=== PATIENT | male | born 1995 | race African-American/Black ===

== ENCOUNTER 2017-03-28 20:04 | Emergency (ER) | payer SELFPAY ==
[2017-03-28 20:08] VITALS: BP 120/69; PULSE 112; TEMP 97.7; BMI 19.8
[2017-03-28] MEDS ORDERED: ALBUTEROL SO4 0.083% IH SOL 2.5 MG/3 ML VIAL.NEB. NEB ONE ×2 (20:25→20:30)
--- NOTE | 2017-03-28 20:25 | PDOC ---
History of Present Illness - General Chief Complaint: Asthma Stated Complaint: ASTHMA Time Seen by Provider: 03/28/17 20:20 History Source: Patient Exam Limitations: No Limitations - History of Present Illness Initial Comments: 03/28/17 20:22 21 yr male with asthma no history of intubations or hospitalizations presents with nasal congestion, phlegm in throat and coughing . no fever no wheezing. Pt states at night he feels short of breath. Pt ran out inhalers and called out of work today asking for a note. Pt currently smokes daily. 03/28/17 20:26 Past History - Past Medical History Allergies/Adverse Reactions: Allergies Allergy/AdvReac Type Severity Reaction Status Date / Time No Known Allergies Allergy Verified 03/28/17 20:08 Home Medications: Ambulatory Orders Albuterol Sulfate Inhaler - [Ventolin HFA Inhaler -] 2 inh PO Q4H PRN #1 inh Fluticasone Prop 0.05% Nasal [Flonase -] 1 - 2 spray NS DAILY #1 spray.pump Montelukast Na [Singulair -] 10 mg PO HS #30 tablet 03/28/17 Asthma: Yes - Immunization History Immunization Up to Date: Yes - Psycho/Social/Smoking Cessation Hx Anxiety: No Suicidal Ideation: No Smoking Status: No Smoking History: Never smoked Number of Cigarettes Smoked Daily: 2 Information on smoking cessation initiated: No Hx Alcohol Use: No Drug/Substance Use Hx: No Substance Use Type: None *Physical Exam - Vital Signs Last Vital Signs Temp Pulse Resp BP Pulse Ox 97.7 F 112 H 20 120/69 99 03/28/17 20:06 03/28/17 20:06 03/28/17 20:06 03/28/17 20:06 03/28/17 20:06 - Physical Exam General Appearance: Yes: Nourished, Appropriately Dressed, Thin HEENT: positive: EOMI, TITI, Nasal Congestion Neck: positive: Supple. negative: Lymphadenopathy (R), Lymphadenopathy (L) Respiratory/Chest: positive: Lungs Clear, Normal Breath Sounds. negative: Respiratory Distress, Wheezing Cardiovascular: positive: Regular Rhythm, Regular Rate Gastrointestinal/Abdominal: positive: Normal Bowel Sounds, Soft Musculoskeletal: positive: Normal Inspection Extremity: positive: Normal Capillary Refill, Normal Inspection, Normal Range of Motion Integumentary: positive: Normal Color, Dry, Warm Neurologic: positive: Fully Oriented, Alert, Normal Mood/Affect, Normal Response , Motor Strength 04/03 Medical Decision Making - Medical Decision Making 03/28/17 20:27 cc: cough congestion, post nasal drip afebrile no wheezing speaking clearly no resp distress will refill medications and refer to clinic for follow up smoking cessation discussed pt agrees with plan is stable for dc home *DC/Admit/Observation/Transfer Diagnosis at time of Disposition: Asthmatic bronchitis Qualifiers: Asthma severity: mild intermittent Asthma complication type: uncomplicated Qualified Code(s): J45.20 - Mild intermittent asthma, uncomplicated - Discharge Dispostion Disposition: HOME Condition at time of disposition: Good - Prescriptions Prescriptions: Fluticasone Prop 0.05% Nasal [Flonase -] 1 - 2 spray NS DAILY #1 spray.pump Montelukast Na [Singulair -] 10 mg PO HS #30 tablet Albuterol Sulfate Inhaler - [Ventolin HFA Inhaler -] 2 inh PO Q4H PRN #1 inh PRN Reason: Short Of Breath/Wheezing - Referrals Referrals: [facility] [Provider Group] - Patient Instructions Printed Discharge Instructions: DI for Bronchiolitis Additional Instructions: drink pleanty of water avoid smoking take medications as prescribed follow at [facility] for follow up next week Return to ER for any worsening symptoms - Post Discharge Activity Work/School Note: Back to Work
== END 2017-03-28 20:39 | disposition home or self-care (01) ==
LOC: JERFT 20:04
PROC: 3E0F7GC Introduction of Other Therapeutic Substance into Respiratory Tract, Via Natural or Artificial Opening (ICD-10-PCS; principal; 2017-03-28)
DX: J45.20 Mild intermittent asthma, uncomplicated (principal)
CPT/HCPCS: 99281-25

== ENCOUNTER 2019-12-25 13:37 | Emergency (ER) | payer OTHER ==
[2019-12-25 13:52] VITALS: BP 120/79; PULSE 77; TEMP 98.5; BMI 19.8
[2019-12-25] MEDS ORDERED: DEXAMETHASONE LIQUID 0.5 MG/5 ML PO ONE (15:01)
[2019-12-25] MEDS ORDERED: IBUPROFEN 600 MG TABLET (FP) PO ONE ×2 (15:01→15:34)
--- NOTE | 2019-12-25 15:09 | PDOC ---
History of Present Illness - General Chief Complaint: Cold Symptoms Stated Complaint: LT EAR INFECTION/Cold Symptoms Time Seen by Provider: 12/25/19 13:58 History Source: Patient Exam Limitations: No Limitations - History of Present Illness Initial Comments: 12/25/19 15:07 HISTORY OF PRESENT ILLNESS: 24-year-old otherwise healthy male presents emergency department for evaluation of bilateral ear pain, throat pain, dry cough over the past 3 days. Patient is concerned that he has an otitis media as he reports having frequent otitis media as a child. He denies fevers, chills , body aches, headache, abdominal pain, nausea or vomiting. No recent travel or sick contacts. PAST MEDICAL HISTORY: Denies past medical history SURGICAL HISTORY: Denies ALLERGIES: No known drug allergies REVIEW OF SYSTEMS General/Constitutional: Denies fever or chills. Denies weakness, weight change. HEENT: See HPI Cardiovascular: Denies chest pain or shortness of breath. Respiratory: Denies cough, wheezing, or hemoptysis. Gastrointestinal: Denies nausea, vomiting, diarrhea or constipation. Denies rectal bleeding. Genitourinary: Denies dysuria, frequency, or change in urination. Musculoskeletal: Denies joint or muscle swelling or pain. Denies neck or back pain. Skin and breasts: Denies rash or easy bruising. Neurologic: Denies headache, vertigo, loss of consciousness, or loss of sensation. Psychiatric: Denies depression or anxiety. Endocrine: Denies increased thirst. Denies abnormal weight change. Hematologic/Lymphatic: Denies anemia, easy bleeding, or history of blood clots. Allergic/Immunologic: Denies hives or skin allergy. Denies latex allergy. PHYSICAL EXAM General Appearance: Well-appearing, appropriately dressed. No apparent distress , no intoxication. HEENT: EOMI, PERRLA, normal ENT inspection, normal voice, TMs normal, pharynx normal. No conjunctival pallor. No photophobia, scleral icterus. Oropharynx mildly erythematous without lesions or exudates present. Minimal tonsillar swelling present. Cobblestoning present the posterior aspect of the oropharynx. Neck: Supple. Trachea midline. No tenderness, rigidity, carotid bruit, stridor , lymphadenopathy, or thyromegaly. Respiratory/Chest: Lungs CTAB. No shortness of breath, chest tenderness, respiratory distress, accessory muscle use. No crackles, rales, rhonchi, stridor , wheezing, dullness Cardiovascular: RRR. S1, S2. No JVD, murmur, bradycardia, tachycardia. Gastrointestinal/Abdominal: Normal bowel sounds. Abdomen soft, non-distended. No tenderness or rebound tenderness. No organomegaly, pulsatile mass, guarding, hernia, hepatomegaly, splenomegaly. Neurologic: inspector balance truing II-XII intact. Fully oriented, alert. Appropriate mood/affect. Motor strength 5/5. No appreciable EOM palsy, facial droop or sensory deficit. Past History - Past Medical History Allergies/Adverse Reactions: Allergies Allergy/AdvReac Type Severity Reaction Status Date / Time No Known Allergies Allergy Verified 12/25/19 13:49 Home Medications: Ambulatory Orders Albuterol Sulfate Inhaler - [Ventolin HFA Inhaler -] 2 inh PO Q4H PRN #1 inh Amoxicillin - [Amoxicillin 500mg Capsule -] 500 mg PO BID #20 capsule 12/25/19 Asthma: Yes COPD: No - Immunization History Immunization Up to Date: Yes - Psycho Social/Smoking Cessation Hx Smoking Status: No Smoking History: Never smoked Number of Cigarettes Smoked Daily: 2 Hx Alcohol Use: No Drug/Substance Use Hx: No Substance Use Type: None *Physical Exam - Vital Signs Last Vital Signs Temp Pulse Resp BP Pulse Ox 98.5 F 77 18 120/79 99 12/25/19 13:50 12/25/19 13:50 12/25/19 13:50 12/25/19 13:50 12/25/19 13:50 Medical Decision Making - Medical Decision Making 12/25/19 15:08 A/P: 24-year-old male with bilateral ear pain, sore throat and dry cough for 4 days Oropharynx mildly erythematous without lesions or exudates present TMs are within normal limits bilaterally Most likely nasopharyngitis but as patient is reporting severe throat pain causes difficulty/painful swallowing, I will get a rapid strep test to rule out bacterial etiology. Decadron 10 mg orally now Motrin 600 mg orally Reassess 12/25/19 15:37 Rapid strep testing is positive. We will discharge patient home with prescription for amoxicillin and instructions to follow-up with his primary doctor as needed. Discharge home I discussed the physical exam findings, ancillary test results and final diagnoses with the patient. I answered all of the patient's questions. The patient was satisfied with the care received and felt comfortable with the discharge plan and treatment plan. The patient will call their primary care physician within 24 hours to arrange follow-up and will return to the Emergency Department with any new, persistent or worsening symptoms. 12/30/19 01:56 Discharge - Discharge Information Problems reviewed: Yes Clinical Impression/Diagnosis: Acute streptococcal pharyngitis Condition: Stable Disposition: HOME - Admission No - Additional Discharge Information Prescriptions: Amoxicillin - [Amoxicillin 500mg Capsule -] 500 mg PO BID #20 capsule - Follow up/Referral Referrals: Tony Wu MD [Primary Care Provider] - - Patient Discharge Instructions Additional Instructions: Take amoxicillin as prescribed. Salt water garggles. Throw away your toothbrush in 3 days and start using a new toothbrush. No sharing of drinks, utensils or toothbrushes. Take Motrin as directed by audit senior associate's instructions. Return to ED for worsening fevers, worsening sore throat, chest pain, shortness of breath or any other concerns. - Post Discharge Activity
[2019-12-25] MEDS ORDERED: DEXAMETHASONE SOD PHOSPHATE 10 MG/1 ML VIAL ONE (15:34)
== END 2019-12-25 15:45 | disposition home or self-care (01) ==
LOC: JERFT 13:37
DX: J02.0 Streptococcal pharyngitis (principal); B95.0 Streptococcus, group A, as the cause of diseases classified elsewhere
CPT/HCPCS: 87880; 99281-25

== ENCOUNTER 2021-03-13 09:47 | Inpatient (IN) | payer OTHER ==
[2021-03-13] MEDS ORDERED: SODIUM CHLORIDE 1,000 ML IV STA ×2 (10:37→15:09)
[2021-03-13] MEDS ORDERED: ONDANSETRON 4 MG/2 ML VIAL IVPUSH ONE ×3 (10:37→21:42)
[2021-03-13] MEDS ORDERED: KETOROLAC TROMETHAMINE 60 MG/2 ML VIAL IVPUSH ONE (10:37)
[2021-03-13] MEDS ORDERED: ONDANSETRON 4 MG/2 ML VIAL ONE ×3 (10:42→21:43)
[2021-03-13] MEDS ORDERED: KETOROLAC TROMETHAMINE 15 MG/ML VIAL ONE (10:42)
[2021-03-13 11:09] LABS: BASO % 0.8 % (0-2.0); EOS % 0.2 % (0-4.5); HEMATOCRIT 46.5 % (35.4-49); HEMOGLOBIN 16.3 GM/dL (11.7-16.9); LYMPH % 19.2 % (8-40); MCH 31.5 pg (25.7-33.7); MCHC 35.1 g/dl (32.0-35.9); MEAN CELL VOLUME 89.8 fl (80-96); MEAN PLT VOLUME 8.6 fl (7.5-11.1); MONO % 6.5 % (3.8-10.2); NEUT % 73.3 % (42.8-82.8); PLATELET COUNT 203 K/MM3 (134-434); RBC 5.18 M/mm3 (4.00-5.60); RDW 12.7 % (11.9-15.9); WHITE BLOOD COUNT 4.8 K/mm3 (4.0-10.0)
[2021-03-13 11:26] LABS: ALBUMIN 4.9 g/dl (3.4-5.0); CALCIUM 10.4 mg/dL (8.5-10.1)
[2021-03-13 11:27] LABS: BLOOD UREA NITROGEN 21.3 mg/dL (7-18)
[2021-03-13 11:30] LABS: CREATININE 1.2 mg/dL (0.55-1.3)
[2021-03-13 11:32] LABS: BILIRUBIN,TOTAL 0.9 mg/dL (0.2-1); TOT PROT 8.9 g/dl (6.4-8.2)
[2021-03-13 14:20] LABS: EPI CELLS >36 /uL (0-25.1); HYALINE CASTS 1 /uL (0-3.1); URINE APPEARANCE CLOUDY; URINE BACTERIA 122 /uL (0-1359); URINE BILIRUBIN NEGATIVE (NEGATIVE); URINE COLOR DK YELLOW; URINE GLUCOSE (UA) NEGATIVE (NEGATIVE); URINE KETONE 4+ (NEGATIVE); URINE LEUK ESTERASE 2+ (NEGATIVE); URINE NITRITE NEGATIVE (NEGATIVE); URINE PROTEIN 2+ (NEGATIVE); URINE RBC 1198 /uL (0-23.9); URINE WBC 99 /uL (0-25.8)
[2021-03-13] MEDS ORDERED: CEFTRIAXONE 1,000 MG in DEXTROSE 5%-WATER - 50 ML IVPB ONE (15:09)
[2021-03-13] MEDS ORDERED: CEFTRIAXONE 1 GM/50 ML BAG ONE (15:13)
[2021-03-13] MEDS ORDERED: ACETAMINOPHEN 1000 MG/100 ML VIAL (NON FORMULARY) IVPB ONE (15:27)
[2021-03-13] MEDS ORDERED: ACETAMINOPHEN INJECTION 100 ML IVPB ONE (15:30)
[2021-03-13] MEDS ORDERED: TAMSULOSIN HCL 0.4 MG CAP PO ONE (16:14)
[2021-03-13] MEDS ORDERED: ACETAMINOPHEN 325 MG TABLET (FP) PO PRN (16:31)
[2021-03-13] MEDS ORDERED: ENOXAPARIN NA (PORCINE) 40 MG/0.4 ML DISP.SYRIN SQ ONE (16:40)
[2021-03-13] MEDS ORDERED: TAMSULOSIN HCL 0.4 MG CAP ONE (16:40)
[2021-03-13] MEDS: SODIUM CHLORIDE 1,000 ML IV SCH (16:45)
[2021-03-13] MEDS: ENOXAPARIN NA (PORCINE) 40 MG/0.4 ML DISP.SYRIN SQ SCH (17:49)
[2021-03-14 04:41] VITALS: BMI 19.8
[2021-03-14] MEDS: SODIUM CHLORIDE 1,000 ML IV SCH (05:24)
[2021-03-14 07:32] LABS: BASO % 0.2 % (0-2.0); EOS % 0.1 % (0-4.5); HEMATOCRIT 40.2 % (35.4-49); LYMPH % 14.2 % (8-40); MCH 31.2 pg (25.7-33.7); MCHC 34.8 g/dl (32.0-35.9); MEAN CELL VOLUME 89.7 fl (80-96); MEAN PLT VOLUME 8.4 fl (7.5-11.1); MONO % 7.5 % (3.8-10.2); PLATELET COUNT 183 K/MM3 (134-434); RBC 4.48 M/mm3 (4.00-5.60); RDW 12.6 % (11.9-15.9); WHITE BLOOD COUNT 5.7 K/mm3 (4.0-10.0)
[2021-03-14 07:58] LABS: ALBUMIN 3.9 g/dl (3.4-5.0); BLOOD UREA NITROGEN 20.1 mg/dL (7-18)
[2021-03-14 07:59] LABS: CALCIUM 8.9 mg/dL (8.5-10.1); MAGNESIUM 1.9 mg/dL (1.8-2.4)
[2021-03-14 08:01] LABS: PHOSPHOROUS 3.9 mg/dL (2.5-4.9)
[2021-03-14 08:02] LABS: CREATININE 1.1 mg/dL (0.55-1.3)
[2021-03-14] MEDS ORDERED: CEFTRIAXONE 1 GM in DEXTROSE 5%-WATER - 50 ML IVPB SCH (10:00)
[2021-03-14] MEDS: ENOXAPARIN NA (PORCINE) 40 MG/0.4 ML DISP.SYRIN SQ SCH (10:25)
[2021-03-14] MEDS ORDERED: cefTRIAXone SODIUM 1 GM VIAL ONE (10:28)
[2021-03-14] MEDS ORDERED: DEXTROSE 5%-WATER - 50 ML IVPB ONE (10:28)
[2021-03-14] MEDS ORDERED: PROPOFOL 20 ML ONE (14:28)
[2021-03-14] MEDS ORDERED: MIDAZOLAM HCL 2 MG/2 ML SINGLE DOSE VIAL ONE (14:28)
[2021-03-14] MEDS ORDERED: DEXAMETHASONE SOD PHOSPHATE 4 MG/1 ML VIAL ONE (14:28)
[2021-03-14] MEDS ORDERED: LIDOCAINE HCL/PF 2% SDV 5ML VIAL ONE (14:28)
[2021-03-14] MEDS ORDERED: GENTAMICIN SO4 80 MG/2 ML VIAL ONE (15:10)
[2021-03-14] MEDS ORDERED: GENTAMICIN 80MG PREMIX BAG IVPB ONE (15:10)
[2021-03-14] MEDS ORDERED: IOHEXOL 300 MG/ML INFUS..BTL IV ONE (15:40)
[2021-03-14] MEDS ORDERED: SODIUM CHLORIDE 1,000 ML IV SCH (16:12)
[2021-03-14] MEDS ORDERED: PROMETHAZINE HCL 25 MG/1 ML VIAL IVPUSH PRN (16:39)
[2021-03-14] MEDS ORDERED: ONDANSETRON 4 MG/2 ML VIAL IVPUSH PRN (16:39)
[2021-03-14] MEDS ORDERED: LACTATED RINGERS SOLUTION 1,000 ML IV SCH (16:45)
[2021-03-14] MEDS: ACETAMINOPHEN 325 MG TABLET (FP) PO PRN ×3 (17:26→21:29)
[2021-03-14] MEDS ORDERED: KETOROLAC TROMETHAMINE 30 MG/1 ML VIAL IM ONE (18:02)
[2021-03-14] MEDS: KETOROLAC TROMETHAMINE 15 MG/ML VIAL IVPUSH PRN (18:17)
[2021-03-15] MEDS ORDERED: DEXTROSE 5%-NORMAL SALINE 1,000 ML IV SCH (00:30)
[2021-03-15] MEDS: KETOROLAC TROMETHAMINE 15 MG/ML VIAL IVPUSH PRN (01:05)
[2021-03-15] MEDS ORDERED: TRIMETHOBENZAMIDE HCL 200MG/2ML INJ IM ONE (01:30)
[2021-03-15 07:22] LABS: BASO % 0.6 % (0-2.0); EOS % 0.1 % (0-4.5); HEMATOCRIT 41.1 % (35.4-49); HEMOGLOBIN 14.6 GM/dL (11.7-16.9); LYMPH % 11.7 % (8-40); MCH 31.5 pg (25.7-33.7); MCHC 35.5 g/dl (32.0-35.9); MEAN CELL VOLUME 88.6 fl (80-96); MEAN PLT VOLUME 8.7 fl (7.5-11.1); MONO % 10.6 % (3.8-10.2); PLATELET COUNT 171 K/MM3 (134-434); RBC 4.65 M/mm3 (4.00-5.60); RDW 12.5 % (11.9-15.9); WHITE BLOOD COUNT 10.4 K/mm3 (4.0-10.0)
[2021-03-15 08:05] LABS: BLOOD UREA NITROGEN 11.5 mg/dL (7-18); CALCIUM 9.3 mg/dL (8.5-10.1); CREATININE 1.1 mg/dL (0.55-1.3); MAGNESIUM 1.7 mg/dL (1.8-2.4); PHOSPHOROUS 2.3 mg/dL (2.5-4.9)
[2021-03-15] MEDS ORDERED: DEXTROSE 5%-WATER - 50 ML IVPB ONE (08:27)
[2021-03-15] MEDS ORDERED: cefTRIAXone SODIUM 1 GM VIAL ONE (08:27)
[2021-03-15] MEDS ORDERED: MAGNESIUM SULF 50% (8.12 MEQ/2 ML-1 GM VIAL) IVPB ONE (09:30)
[2021-03-15] MEDS ORDERED: NAPH,MB-DB/K PH,MBDB POWDER PACKET PO ONE (09:30)
[2021-03-15] MEDS ORDERED: CEFTRIAXONE 1 GM in DEXTROSE 5%-WATER - 50 ML IVPB SCH (10:00)
[2021-03-15] MEDS ORDERED: ENOXAPARIN NA (PORCINE) 40 MG/0.4 ML DISP.SYRIN SQ SCH (10:00)
[2021-03-15] MEDS ORDERED: MAGNESIUM OXIDE 400 MG TABLET (FP) PO ONE (12:12)
[2021-03-15 12:30] LABS: BASO % 0.6 % (0-2.0); EOS % 0.4 % (0-4.5); HEMATOCRIT 42.3 % (35.4-49); HEMOGLOBIN 14.8 GM/dL (11.7-16.9); LYMPH % 16.4 % (8-40); MCH 31.5 pg (25.7-33.7); MCHC 35.1 g/dl (32.0-35.9); MEAN CELL VOLUME 89.5 fl (80-96); MEAN PLT VOLUME 9.1 fl (7.5-11.1); MONO % 11.1 % (3.8-10.2); NEUT % 71.5 % (42.8-82.8); PLATELET COUNT 181 K/MM3 (134-434); RBC 4.72 M/mm3 (4.00-5.60); RDW 12.5 % (11.9-15.9); WHITE BLOOD COUNT 8.9 K/mm3 (4.0-10.0)
[2021-03-15 18:03] VITALS: BP 124/82; PULSE 70; TEMP 98.1
== END 2021-03-15 18:00 | disposition home or self-care (01) | DRG 465 ==
LOC: JER 09:47 → JERBED 16:26 → J7W 03-14 04:32
PROVIDERS: ADMIT Internal Medicine; ATTEND Internal Medicine
PROC: 0T778DZ Dilation of Left Ureter with Intraluminal Device, Via Natural or Artificial Opening Endoscopic (ICD-10-PCS; principal; 2021-03-14 14:30)
PROC: BT1FZZZ Fluoroscopy of Left Kidney, Ureter and Bladder (ICD-10-PCS; 2021-03-14 14:30)
DX: N13.2 Hydronephrosis with renal and ureteral calculous obstruction (principal); J45.909 Unspecified asthma, uncomplicated; F12.90 Cannabis use, unspecified, uncomplicated
CPT/HCPCS: 36415; 74176-TC; 76000-TC-FY; 80048; 80053; 81003; 82962; 83735; 84100; 85025; 86850; 86900; 86901; 87086; 87491; 87591; 93005; 93010; 94760; 99285-25; C9803; J0131; U0003; U0005

== ENCOUNTER 2021-06-21 04:48 | Day surgery (SDC) | payer OTHER ==
[2021-06-19 17:50] VITALS: BMI 18.8
[2021-06-21 11:00] LABS: EPI CELLS 32 /uL (0-25.1); HYALINE CASTS 1 /uL (0-3.1); PH,URINE 7.5 (5.0-8.0); URINE APPEARANCE CLOUDY; URINE BACTERIA 43 /uL (0-1359); URINE BILIRUBIN NEGATIVE (NEGATIVE); URINE COLOR YELLOW; URINE GLUCOSE (UA) NEGATIVE (NEGATIVE); URINE KETONE NEGATIVE (NEGATIVE); URINE LEUK ESTERASE 2+ (NEGATIVE); URINE NITRITE NEGATIVE (NEGATIVE); URINE PROTEIN 2+ (NEGATIVE); URINE RBC 1763 /uL (0-23.9); URINE WBC 217 /uL (0-25.8)
[2021-06-21] MEDS ORDERED: ceFAZolin SODIUM 1 GM VIAL ONE (11:16)
[2021-06-21] MEDS ORDERED: LIDOCAINE HCL/PF 2% SDV 5ML VIAL ONE (11:16)
[2021-06-21] MEDS ORDERED: MIDAZOLAM HCL 2 MG/2 ML SINGLE DOSE VIAL ONE (11:17)
[2021-06-21] MEDS ORDERED: PROPOFOL 20 ML ONE ×2 (11:17)
[2021-06-21] MEDS ORDERED: ceFAZolin SODIUM 1 GM VIAL IVPB ONE (11:32)
[2021-06-21] MEDS ORDERED: DEXAMETHASONE SOD PHOSPHATE 4 MG/1 ML VIAL ONE (11:59)
[2021-06-21] MEDS ORDERED: MEPERIDINE HCL 25 MG/ML VIAL ONE (12:42)
[2021-06-21] MEDS ORDERED: IBUPROFEN 800 MG/8 ML IJ IVPB PRN (12:43)
[2021-06-21] MEDS ORDERED: oxyCODONE HCL 5 MG TABLET PO PRN (12:43)
[2021-06-21] MEDS ORDERED: ONDANSETRON 4 MG/2 ML VIAL IVPUSH PRN (12:43)
[2021-06-21] MEDS ORDERED: MEPERIDINE HCL 25 MG/ML VIAL IVPUSH ONE (12:44)
[2021-06-21] MEDS ORDERED: LACTATED RINGERS SOLUTION 1,000 ML IV SCH (12:45)
[2021-06-21] MEDS ORDERED: MEPERIDINE HCL CARPU-JECT 25 MG/1 ML DISP.SYRIN IVPUSH ONE (12:45)
[2021-06-21] MEDS ORDERED: oxyCODONE HCL 5 MG TABLET ONE (14:22)
[2021-06-21 17:42] VITALS: BP 117/77; PULSE 56; TEMP 98.3
== END 2021-06-21 15:10 | disposition home or self-care (01) ==
LOC: JASU-SURG 04:48
PROVIDERS: ATTEND Urology
PROC: 0TC78ZZ Extirpation of Matter from Left Ureter, Via Natural or Artificial Opening Endoscopic (ICD-10-PCS; principal; 2021-06-21 12:00)
PROC: 0T778DZ Dilation of Left Ureter with Intraluminal Device, Via Natural or Artificial Opening Endoscopic (ICD-10-PCS; 2021-06-21 12:00)
DX: N20.1 Calculus of ureter (principal)
CPT/HCPCS: 36415; 81003; 82360; 88300-TC; 94760

== ENCOUNTER 2022-10-04 12:31 | Inpatient (IN) | payer OTHER ==
[2022-10-04] MEDS ORDERED: morphine CARPU-JECT 4 MG/1 ML DISP.SYRIN IVPUSH ONE (14:09)
[2022-10-04] MEDS ORDERED: ONDANSETRON 4 MG/2 ML VIAL IVPUSH ONE (14:09)
[2022-10-04] MEDS ORDERED: SODIUM CHLORIDE 1,000 ML IV STA ×2 (14:09→16:20)
[2022-10-04] MEDS ORDERED: morphine SULFATE 4 MG/ML VIAL ONE (14:53)
[2022-10-04] MEDS ORDERED: ONDANSETRON 4 MG/2 ML VIAL ONE (14:53)
[2022-10-04 15:16] LABS: HEMATOCRIT 44.6 % (35.4-49); HEMOGLOBIN 15.5 GM/dL (11.7-16.9); MCH 30.7 pg (25.7-33.7); MCHC 34.7 g/dl (32.0-35.9); MEAN CELL VOLUME 88.4 fl (80-96); MEAN PLT VOLUME 8.3 fl (7.5-11.1); PLATELET COUNT 195 10^3/uL (134-434); RBC 5.04 M/mm3 (4.00-5.60); RDW 12.6 % (11.9-15.9); WHITE BLOOD COUNT 24.5 K/mm3 (4.0-10.0)
[2022-10-04 16:05] LABS: LACTIC ACID 4.3 mmol/L (0.4-2.0)
[2022-10-04 16:19] LABS: ALBUMIN 3.4 g/dl (3.4-5.0); BILIRUBIN,TOTAL 0.8 mg/dL (0.2-1); BLOOD UREA NITROGEN 20.9 mg/dL (7-18); CALCIUM 9.3 mg/dL (8.5-10.1); CREATININE 1.4 mg/dL (0.55-1.3); TOT PROT 7.6 g/dl (6.4-8.2)
[2022-10-04] MEDS ORDERED: PIPERACILLIN/TAZOB 4.5 GM 4.5 GM in DEXTROSE 5%-WATER 100 ML IVPB ONE (16:19)
[2022-10-04] MEDS ORDERED: VANCOMYCIN 1 GM in D5W (PRE-DOCKED) 1,000 MG/250 ML IVPB ONE (16:19)
[2022-10-04] MEDS ORDERED: VANCOMYCIN/WATER FOR INJ (PEG) 1,000 MG/200 ML BAG IVPB ONE (16:44)
[2022-10-04] MEDS ORDERED: PIPERACILLIN/TAZOB 4.5 GM 4.5 GM/100 ML BAG IVPB ONE (16:44)
[2022-10-04] MEDS ORDERED: ONDANSETRON 4 MG/2 ML VIAL IVPUSH PRN (21:53)
[2022-10-04] MEDS ORDERED: SODIUM CHLORIDE 1,000 ML IV SCH (22:00)
[2022-10-04 23:07] LABS: URINE APPEARANCE CLEAR; URINE COLOR YELLOW
[2022-10-04 23:08] LABS: URINE BILIRUBIN NEGATIVE (NEGATIVE); URINE GLUCOSE (UA) NEGATIVE (NEGATIVE); URINE KETONE NEGATIVE (NEGATIVE); URINE NITRITE NEGATIVE (NEGATIVE); URINE PROTEIN 100 (NEGATIVE); URINE UROBILINOGEN 0.2 mg/dL (0.2-1.0)
[2022-10-04 23:09] LABS: EPI CELLS 1.2 /uL (0-25.1); HYALINE CASTS 2.16 /uL (0-3.1); URINE BACTERIA 99.3 /uL (0-1359); URINE LEUK ESTERASE TRACE (NEGATIVE); URINE WBC 845.2 /uL (0-25.8)
[2022-10-05 06:02] VITALS: RESP 18
[2022-10-05] MEDS ORDERED: ONDANSETRON 4 MG/2 ML VIAL ONE (06:11)
[2022-10-05 07:45] LABS: BASO % 0.1 % (0-2.0); EOS % 0.1 % (0-4.5); HEMATOCRIT 38.5 % (35.4-49); HEMOGLOBIN 13.2 GM/dL (11.7-16.9); LYMPH % 4.2 % (8-40); MCH 30.1 pg (25.7-33.7); MCHC 34.2 g/dl (32.0-35.9); MEAN CELL VOLUME 87.8 fl (80-96); MEAN PLT VOLUME 8.5 fl (7.5-11.1); MONO % 9.8 % (3.8-10.2); NEUT % 85.8 % (42.8-82.8); PLATELET COUNT 173 10^3/uL (134-434); RBC 4.38 M/mm3 (4.00-5.60); RDW 12.7 % (11.9-15.9); WHITE BLOOD COUNT 13.3 K/mm3 (4.0-10.0)
[2022-10-05 08:48] LABS: CALCIUM 8.2 mg/dL (8.5-10.1)
[2022-10-05 08:49] LABS: BLOOD UREA NITROGEN 15.6 mg/dL (7-18); MAGNESIUM 1.7 mg/dL (1.8-2.4)
[2022-10-05 08:51] LABS: CREATININE 0.9 mg/dL (0.55-1.3); PHOSPHOROUS 2.3 mg/dL (2.5-4.9)
[2022-10-05 08:55] LABS: BILIRUBIN,TOTAL 0.6 mg/dL (0.2-1); TOT PROT 5.8 g/dl (6.4-8.2)
[2022-10-05 08:57] LABS: ALBUMIN 2.6 g/dl (3.4-5.0)
[2022-10-05] MEDS ORDERED: PIPERACILLIN/TAZOB 3.375 GM 3.375 GM/50 ML BAG IVPB ONE (09:36)
[2022-10-05] MEDS ORDERED: TAMSULOSIN HCL 0.4 MG CAP ONE (09:36)
[2022-10-05] MEDS: TAMSULOSIN HCL 0.4 MG CAP PO SCH (09:46)
[2022-10-05] MEDS ORDERED: PIPERACILLIN/TAZOB 3.375 GM 3.375 GM/50 ML BAG IVPB SCH (10:00)
[2022-10-05] MEDS ORDERED: MAGNESIUM SULF 50% (8.12 MEQ/2 ML-1 GM VIAL) IVPB ONE (12:15)
[2022-10-05] MEDS ORDERED: MAGNESIUM SULFATE IN WATER 2 GM/50 ML IVPB IVPB ONE (12:43)
[2022-10-05] MEDS ORDERED: SODIUM PHOSPHATE - 30 MM in SODIUM CHLORIDE 250 ML IVPB ONE (13:00)
[2022-10-05] MEDS: PIPERACILLIN/TAZOB 3.375 GM 3.375 GM in DEXTROSE 5%-WATER - 50 ML IVPB SCH (17:43)
[2022-10-05 18:06] VITALS: BMI 20.6
[2022-10-05] MEDS: ACETAMINOPHEN 1000 MG/100 ML BAG IVPB PRN (18:33)
[2022-10-05] MEDS: SODIUM CHLORIDE 1,000 ML IV SCH (22:58)
[2022-10-06] MEDS: PIPERACILLIN/TAZOB 3.375 GM 3.375 GM in DEXTROSE 5%-WATER - 50 ML IVPB SCH ×2 (01:55→09:16)
[2022-10-06 06:22] VITALS: BP 98/55; PULSE 54
[2022-10-06] MEDS: ACETAMINOPHEN 1000 MG/100 ML BAG IVPB PRN (06:39)
[2022-10-06] MEDS: SODIUM CHLORIDE 1,000 ML IV SCH (06:43)
[2022-10-06 08:58] LABS: BASO % 0.1 % (0-2.0); EOS % 0.4 % (0-4.5); HEMATOCRIT 39.3 % (35.4-49); HEMOGLOBIN 13.4 GM/dL (11.7-16.9); LYMPH % 7.2 % (8-40); MCH 30.2 pg (25.7-33.7); MCHC 34.2 g/dl (32.0-35.9); MEAN CELL VOLUME 88.4 fl (80-96); MEAN PLT VOLUME 8.8 fl (7.5-11.1); MONO % 18.5 % (3.8-10.2); NEUT % 73.8 % (42.8-82.8); PLATELET COUNT 181 10^3/uL (134-434); RBC 4.45 M/mm3 (4.00-5.60); RDW 12.8 % (11.9-15.9); WHITE BLOOD COUNT 9.8 K/mm3 (4.0-10.0)
[2022-10-06] MEDS: TAMSULOSIN HCL 0.4 MG CAP PO SCH (09:16)
[2022-10-06 09:27] LABS: CALCIUM 7.9 mg/dL (8.5-10.1)
[2022-10-06 09:30] LABS: CREATININE 0.9 mg/dL (0.55-1.3); PHOSPHOROUS 2.1 mg/dL (2.5-4.9)
[2022-10-06 11:23] VITALS: TEMP 98.2
== END 2022-10-06 11:18 | disposition home or self-care (01) | DRG 466 ==
LOC: JER 12:31 → JERBED 21:16 → J4S 10-05 17:35
PROVIDERS: ADMIT Internal Medicine; ATTEND Internal Medicine
DX: T83.512A Infection and inflammatory reaction due to nephrostomy catheter, initial encounter (principal); N12 Tubulo-interstitial nephritis, not specified as acute or chronic; E87.20 Acidosis, unspecified; R50.9 Fever, unspecified; N20.0 Calculus of kidney; N39.0 Urinary tract infection, site not specified; F17.210 Nicotine dependence, cigarettes, uncomplicated; Y83.8 Other surgical procedures as the cause of abnormal reaction of the patient, or of later complication, without mention of misadventure at the time of the procedure
CPT/HCPCS: 0241U-QW; 36415; 74177-TC; 76775-TC; 80048; 80053; 81003; 83605; 83690; 83735; 84100; 85025; 87040; 87086; 93005; 93010; 99285-25; Q9967